=== PATIENT | male | born 1950 | race Caucasian/White ===

== ENCOUNTER 2018-04-07 18:56 | Inpatient (IN) ==
[2018-04-07] MEDS ORDERED: Aluminum/Magnesium/Simethacone Susp 30 ML UDC PO PRN (20:17)
[2018-04-08] MEDS: Finasteride 5 MG Tablet PO SCH (08:56)
[2018-04-08] MEDS: Folic Acid 1 MG Tablet PO SCH (08:56)
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
[2018-04-08] MEDS: Lisinopril 5 MG Tablet PO SCH (16:10)
[2018-04-08] MEDS: Venlafaxine XR 75 MG Capsule PO SCH (16:10)
--- NOTE | 2018-04-08 16:38 | P.CON ---
History of Present Illness Service: [facility] Consult date: 04/08/18 Requesting Physician: Luis Armando Calabrese Reason for Consult: Medical Management s/p overdose and intubation/extubation Primary Care Provider: UNKNOWN Chief Complaint: depression, suicidal, overdose History of Present Illness: 67-year-old male with history of HTN, BPH, COPD, admitted to inpatient psychiatry after inpatient hospitalization for overdose and attempted suicide. The patient was admitted to critical care, status post intubation/extubation during previous hospitalization. Hospitalist consulted for continued medical management after overdose and acute respiratory failure. The patient is seen ambulating the hallway with his walker. He denies any specific medical complaints including no fever/chills, headache, lightheadedness , chest pain, shortness of breath, or abdominal complaints. He states he has a chronic cough from his COPD; denies any recent worsening or purulent sputum. Discussed with RN, no acute concerns. Review of Systems All other systems reviewed negative except as stated in HPI [facility] - History History Provided By: Patient, Medical Record - Medical History Medical History: Medical History (Last Updated 04/08/18 @ 16:17 by Yelena Verdin) PTSD (post-traumatic stress disorder) Anxiety COPD (chronic obstructive pulmonary disease) Hypertension - Surgical History Surgical History: Surgical History (Last Updated 04/08/18 @ 17:28 by Yelena Verdin) S/P skin cancer resection - Family History Family History: Family History (Last Updated 04/08/18 @ 17:28 by Yelena Verdin) Mother Heart disease - Social History I have reviewed the patient's Social History: Yes - Tobacco History Second Hand Smoke Exposure: Yes Tobacco Use In Past 30 Days: No Smoking Status: Current every day smoker Tobacco Type: Cigarettes, E-Cigarettes - Alcohol History How Often Do You Have a Drink Containing Alcohol: Never - Substance Use History Substance History: No History of Abuse - Travel History Recent Travel in the [place] Within the Last 8 Weeks: No Recent Travel Out of the Country Within the Last 8 Weeks: No Medications and Allergies Active Medications: Active Medications Al Hydrox/Mg Hydrox/Simethicone (Mag-Al Plus Susp Liq) 30 ml PO Q6H PRN PRN Reason: DYSPEPSIA Al Hydroxide/Mg Hydroxide (Milk Of Magnesia Liq) 30 ml PO Q12H PRN PRN Reason: Mild Constipation Albuterol (Ventolin Hfa Inh) 2 puff INH Q6H PRN PRN Reason: Dyspnea Albuterol (Albuterol Neb (Prn)) 0.63 mg INH Q4HR NEB PRN PRN Reason: Dyspnea Aspirin (Aspirin Chew) 81 mg PO DAILY [facility] Last Admin: 04/08/18 08:56 Dose: 81 mg Buspirone HCl (Buspar) 5 mg PO TID [facility] Finasteride (Proscar) 5 mg PO DAILY [facility] Last Admin: 04/08/18 08:56 Dose: 5 mg Folic Acid (Folic Acid) 1 mg PO DAILY [facility] Last Admin: 04/08/18 08:56 Dose: 1 mg Lactulose (Lactulose Liq) 30 ml PO DAILY PRN PRN Reason: SEVERE CONSITIPATION Lisinopril (Prinivil) 5 mg PO DAILY [facility] Prazosin HCl (Minipress) 6 mg PO DAILY [facility] Sennosides (Senokot) 17.2 mg PO Q12H PRN PRN Reason: Moderate Constipation Venlafaxine HCl (Effexor Xr) 150 mg PO DAILY [facility] Vitamin D (Vitamin D3) 400 unit PO BID [facility] Allergies Allergy/AdvReac Type Severity Reaction Status Date / Time cefprozil [From Cefzil] Allergy Severe Rash/Swelling Verified 04/03/18 17:37 of face fluoxetine Allergy Intermediate Nausea/Joint Verified 04/03/18 17:39 and Chest pain bacitracin Allergy Mild Muscle Pain Verified 04/03/18 17:39 bupropion Allergy Mild Hives/Aggre Verified 04/03/18 17:39 ssiveness polymyxin B Allergy Mild Unknown Verified 04/03/18 17:37 gemfibrozil Allergy Unknown unknown Verified 04/03/18 17:37 influenza virus vaccine, Allergy Unknown unknown Verified 04/03/18 17:37 specific lamotrigine Allergy Unknown unknown Verified 04/03/18 17:37 paroxetine [From Paxil] Allergy Unknown unknown Verified 04/03/18 17:37 simvastatin [From Zocor] Allergy Unknown unknown Verified 04/03/18 17:37 atorvastatin [From Lipitor] AdvReac Severe Muscle Verified 04/03/18 17:37 Pain/Weakness topiramate AdvReac Mild Tingling Verified 04/03/18 17:37 metronidazole [From Flagyl] AdvReac Unknown Nausea Verified 04/03/18 17:37 tamsulosin AdvReac Unknown Mood Verified 04/03/18 17:37 changes Home Medications Medication Instructions Recorded Confirmed Type alprazolam 1 mg PO QID PRN 03/31/18 03/31/18 History prazosin 6 mg PO DAILY 03/31/18 03/31/18 History Super Beta Prostate 100 mg PO BID 04/03/18 04/03/18 History albuterol sulfate 0.63 mg INHALATION Q4-6H PRN 04/03/18 04/03/18 History albuterol sulfate 2 puff INHALATION Q6H PRN 04/03/18 04/03/18 History aspirin 81 mg PO DAILY 04/03/18 04/03/18 History cholecalciferol (vitamin D3) 400 unit PO BID 04/03/18 04/03/18 History finasteride 5 mg PO DAILY 04/03/18 04/03/18 History folic acid 1 mg PO DAILY 04/03/18 04/03/18 History krill oil 500 mg PO BID 04/03/18 04/03/18 History lisinopril 5 mg PO DAILY 04/03/18 04/03/18 History mirtazapine 45 mg PO HS 04/03/18 04/03/18 History multivitamin 1 tab PO DAILY 04/03/18 04/03/18 History bq-[id number] #[id number] 100 mg PO DAILY 04/03/18 04/03/18 History [Urinozinc Prostate Formula] polyethylene glycol 3350 17 g PO DAILY 04/03/18 04/03/18 History venlafaxine 75 mg PO BID 04/03/18 04/03/18 History Physical Exam Vital signs: Vital Signs 04/07/18 21:59 04/08/18 05:30 Temperature 98.1 F 97.7 F Pulse Rate 66 66 Respiratory Rate 18 Blood Pressure 127/78 132/79 Pulse Oximetry 93 L 93 L Intake & Output 04/07/18 04/08/18 04/08/18 18:59 06:59 18:59 Intake Total 480 / 480 Balance 480 / 480 Weight 74.6 kg Intake: Oral 480 / 480 Other: # Voids 3 Weight On Admission 74.6 kg Narrative: GENERAL: Well-nourished, well-developed male patient in NAD. Ambulating with a walker. SKIN: Warm and dry. No rash. HEENT: Normocephalic. Atraumatic. Pupils equal and round. Mucous membranes pink and moist. NECK: Supple. Trachea midline. CARDIOVASCULAR: Regular rate and rhythm. No murmur appreciated. RESPIRATORY: No accessory muscle use. Clear to auscultation. Breath sounds equal bilaterally. GASTROINTESTINAL: Abdomen soft, non-tender, nondistended. Normoactive bowel sounds x4. MUSCULOSKELETAL: No obvious deformities. Extremities without clubbing, cyanosis , or edema. NEUROLOGICAL: Awake and alert. No obvious cranial nerve deficits. Motor grossly within normal limits. Moving all extremities spontaneously. Normal speech. Assessment and Plan - Plan 67-year-old male with history of HTN, BPH, COPD, admitted to inpatient psychiatry after inpatient hospitalization for overdose and attempted suicide. The patient was admitted to critical care, status post intubation/extubation during previous hospitalization. Hospitalist consulted for continued medical management after overdose and acute respiratory failure. Overdose/suicidal ideations: Acute, status post intubation/extubation on previous admission. Previous UDS positive for benzos only. -Continue management per psychiatry Hypertension: Chronic -Continue patient's lisinopril 5 mg daily -Monitor BP, adjust antihypertensives as needed BPH: Chronic -Continue patient's Proscar and prazosin COPD: Chronic, does not appear to be an exacerbation -Continue Ventolin inhaler and albuterol nebs as needed Deconditioning: secondary to recent ICU admission -consult PT Vitamin D deficiency: Chronic -Continue patient's cholecalciferol DVT prophylaxis: Patient is ambulatory
--- NOTE | 2018-04-09 08:54 | P.PNPSY ---
Subjective Remarks: Patient seen for follow-up, chart reviewed. Discussion with nursing staff reported that patient slept well last night, continues to be isolative, refused to sign voluntary yesterday. Patient was found sitting in hospital bed noted B , cooperative. Patient stays fairly, his mood continues to be depressed but states "not as much". He states that he continues to have poor appetite, has not attended any groups, denying any suicidal ideation today stated last time was yesterday but noted to hesitate when answering this question. Patient noted to have some psychomotor retardation during interview. He reports having met with his yesterday but was unable to elaborate on specifics. Patient mentioning tolerating medication well without have some nausea yesterday. Review of Systems All other systems reviewed negative except as stated in HPI Mental Status Examination Appearance: Appropriate Consciousness: Alert Orientation: Person, Place, Date/Time Motor Activity: Abnormal gait (Uses walker) Speech: Unremarkable Language: Adequate Fund of Knowledge: Inadequate Attention and Concentration: Easily distracted Memory: Impaired (Surrounding events of suicide attempt) Mood: Sad Affect: Sad Thought Process & Associations: Intact Thought Content: Appropriate Hallucination Type: None Delusion Type: None Suicidal Ideation: Yes (Denies today but is unreliable to contract for safety at this time.) Suicidal Plan: No Suicidal Intention: No Homicidal Ideation: No Homicidal Plan: No Homicidal Intention: No Insight: Fair Judgment: Poor Assessment and Plan - Assessment (1) Major depressive disorder Code(s): F32.9 - Major depressive disorder, single episode, unspecified Status : Acute - Plan Plan: Patient continues to be noted to have dysphoric affect, psychomotor retardation , continues to have some cognitive deficit likely secondary to depression as patient has difficulty with his thought organization. We will continue current treatment. Continue to monitor mood and behavior. We will request second opinion this patient refused to sign voluntary and petition for involuntary hospitalization started. Discharge planning in progress. Justification for Continued Inpatient Stay: At risk of further decompensation at lower level care. (1) Major depressive disorder Qualifiers: Major depression recurrence: recurrent Active/Remission status: currently active Major depression episode severity: severe Psychotic features: without psychotic features Qualified Code(s): F33.2 - Major depressive disorder, recurrent severe without psychotic features
[2018-04-09] MEDS: Folic Acid 1 MG Tablet PO SCH (09:23)
[2018-04-09] MEDS: Venlafaxine XR 75 MG Capsule PO SCH (09:23)
[2018-04-09] MEDS: Lisinopril 5 MG Tablet PO SCH (09:23)
[2018-04-09] MEDS: Finasteride 5 MG Tablet PO SCH (09:24)
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
[2018-04-09] MEDS: Acetaminophen 500 MG Tablet PO PRN ×2 (14:20→21:11)
--- NOTE | 2018-04-09 14:30 | P.PN ---
Subjective Interval history: Follow-up for HTN, COPD, deconditioning, status post overdose. Patient is seen sitting on the side of his bed. He states he is annoyed with another patient and his unit he keeps bothering him. He denies any medical complaints including no fever/chills, chest pain, shortness of breath, or abdominal complaints. He states he is eating okay, had 2 servings of applesauce for breakfast. Physical Exam Vital signs: Vital Signs 04/08/18 17:22 04/09/18 05:20 Temperature 98.4 F 97.6 F Pulse Rate 78 82 Respiratory Rate 18 20 Blood Pressure 159/119 H 145/84 H Pulse Oximetry 93 L 94 L Intake & Output 04/08/18 04/09/18 04/09/18 18:59 06:59 18:59 Intake Total 480 / 480 Balance 480 / 480 Intake: Oral 480 / 480 Other: # Voids 1 Narrative: GENERAL: Well-nourished, well-developed male patient in NAD. Ambulating with a walker. SKIN: Warm and dry. No rash. HEENT: Normocephalic. Atraumatic. Pupils equal and round. Mucous membranes pink and moist. CARDIOVASCULAR: Regular rate and rhythm. No murmur appreciated. RESPIRATORY: No accessory muscle use. Clear to auscultation. Breath sounds equal bilaterally. GASTROINTESTINAL: Abdomen soft, non-tender, nondistended. Normoactive bowel sounds x4. MUSCULOSKELETAL: No obvious deformities. Extremities without clubbing, cyanosis , or edema. NEUROLOGICAL: Awake and alert. No obvious cranial nerve deficits. Motor grossly within normal limits. Moving all extremities spontaneously. Normal speech. Assessment and Plan - Plan 67-year-old male with history of HTN, BPH, COPD, admitted to inpatient psychiatry after inpatient hospitalization for overdose and attempted suicide. The patient was admitted to critical care, status post intubation/extubation during previous hospitalization. Hospitalist consulted for continued medical management after overdose and acute respiratory failure. Overdose/suicidal ideations: Acute, status post intubation/extubation on previous admission. Previous UDS positive for benzos only. -Continue management per psychiatry Hypertension: Chronic -Continue patient's lisinopril 5 mg daily -Monitor BP, adjust antihypertensives as needed BPH: Chronic -Continue patient's Proscar and prazosin COPD: Chronic, does not appear to be an exacerbation -Continue Ventolin inhaler and albuterol nebs as needed Deconditioning: secondary to recent ICU admission -consult PT, recommends home health care PT Vitamin D deficiency: Chronic -Continue patient's cholecalciferol DVT prophylaxis: Patient is ambulatory Discharge Planning: The patient is medically stable at this time. Hospitalist team will sign off. Please reconsult as needed if any new issues arise. Thank you very much for this consultation.
--- NOTE | 2018-04-09 17:08 | P.DCO ---
- Diagnosis (1) Physical deconditioning Status: Acute (2) Unsteady gait Status: Acute (3) Hypertension Status: Acute (4) BPH (benign prostatic hyperplasia) Status: Acute (5) Depression Status: Acute - Physical Therapy Order: Evaluate and treat, Improve ambulation, Strength and gait training - Case Management Consult Case Management Consult-Home Health: Yes - Certification I have seen patient Damaso Keita on 04/09/18. My clinical findings support the need for the requested home health care services because: Limited mobility due to disease progression, Deconditioned with increased weakness, Limited ability to care for self I certify that my clinical findings support that this patient is homebound because: Unsteady gait/balance, Unsafe to leave home unassisted, Unable to use public transportation (5) Depression Qualifiers: Major depression recurrence: recurrent Major depression episode severity: severe Psychotic features: without psychotic features
--- NOTE | 2018-04-09 22:26 | CT ---
EXAM DATE: 04/09/2018 10:14 PM EST AGE/SEX: 67 years / Male INDICATIONS: Dizziness, Patient fell CLINICAL DATA: This is the patient's initial encounter. Patient reports that signs and symptoms have been present for 1 day and indicates a pain score of 8/10. MEDICAL/SURGICAL HISTORY: Chronic obstructive pulmonary disease. Hypertension. Carcinoma, skin ca ncer. None. RADIATION DOSE: 39.49 CTDI (mGy) COMPARISON: [facility] [place] [facility] [place] 03/31/2018. . TECHNIQUE: CT of the head without contrast. Using automated exposure control and adjustment of the mA and/or kV according to patient size, radiation dose was kept as low as reasonably achievable to ob tain optimal diagnostic quality images. DICOM format image data is available electronically for revi ew and comparison. FINDINGS: Cerebrum: The ventricles are normal for age. No evidence of midline shift, mass lesion, hemorrhage or acute infarction. No extraaxial fluid collections are seen. Posterior Fossa: The cerebellum and brainstem are intact. The 4th ventricle is midline. The cerebe llopontine angle is unremarkable. Extracranial: The visualized portion of the orbits is intact. Skull: The calvaria is intact. No evidence of skull fracture. CONCLUSION: 1. No acute intracranial abnormalities. . Electronically signed by: Krish Hernadez MD Board Certified Radiologist 04/09/2018 10:24 PM EST
[2018-04-10] MEDS: Lisinopril 5 MG Tablet PO SCH ×2 (09:15→10:29)
[2018-04-10] MEDS: Folic Acid 1 MG Tablet PO SCH (09:15)
[2018-04-10] MEDS: Venlafaxine XR 75 MG Capsule PO SCH (09:16)
[2018-04-10] MEDS: Finasteride 5 MG Tablet PO SCH (09:21)
--- NOTE | 2018-04-10 09:25 | P.PNPSY ---
Subjective Remarks: Patient is seen today in his room with nurse Annamaria, chart reviewed, patient compliant medication. Patient alert and oriented calm cooperative and pleasant with us. States that he feels a little lightheaded at times but overall denying suicidality or homicidality voices or visions. Says he has had good conversations with his family and is feeling much better for now continue treatment Review of Systems All other systems reviewed negative except as stated in HPI Mental Status Examination Appearance: Appropriate Consciousness: Alert Orientation: Person, Place, Date/Time Motor Activity: Abnormal gait (Uses walker) Speech: Unremarkable Language: Adequate Fund of Knowledge: Inadequate Attention and Concentration: Easily distracted (Improved) Memory: Impaired (Surrounding events of suicide attempt) Mood: Sad Affect: Other (Good range and intensity) Thought Process & Associations: Intact Thought Content: Appropriate Hallucination Type: None Delusion Type: None Suicidal Ideation: Yes (Denies today but is unreliable to contract for safety at this time.) Suicidal Plan: No Suicidal Intention: No Homicidal Ideation: No Homicidal Plan: No Homicidal Intention: No Insight: Fair Judgment: Poor Assessment and Plan - Assessment (1) Major depressive disorder Code(s): F32.9 - Major depressive disorder, single episode, unspecified Status : Acute - Plan Plan: Patient mood is improving, he is vague about suicidality today does deny voices. Is compliant with medication. For now continue treatment Justification for Continued Inpatient Stay: At this time patient would decompensate if not place an appropriate level of care Discharge Planning: Probable return home with family (1) Major depressive disorder Qualifiers: Major depression recurrence: recurrent Active/Remission status: currently active Major depression episode severity: severe Psychotic features: without psychotic features Qualified Code(s): F33.2 - Major depressive disorder, recurrent severe without psychotic features
[2018-04-10 11:11] LABS: Baso % (Auto) 0.3 % (0.0-2.0); Eos # (Auto) 0.1 th/mm3 (0.0-0.4); Eos % (Auto) 0.6 % (0.0-4.0); Hematocrit 41.2 % (39.0-51.0); Hemoglobin 14.5 gm/dL (13.0-17.0); Lymph # (Auto) 2.2 th/mm3 (1.0-4.8); Lymph % (Auto) 21.9 % (9.0-44.0); Mean Corpuscular HGB Conc 35.2 % (32.0-36.0); Mean Corpuscular Hemoglobin 30.3 pg (27.0-34.0); Mean Corpuscular Volume 86.1 fL (80.0-100.0); Mean Platelet Volume 7.7 fL (7.0-11.0); Mono # (Auto) 0.6 th/mm3 (0.0-0.9); Mono % (Auto) 6.4 % (0.0-8.0); Neut # (Auto) 7.1 th/mm3 (1.8-7.7); Neut % (Auto) 70.8 % (16.0-70.0); Platelet Count 219 th/mm3 (150-450); Red Blood Count 4.78 mil/mm3 (4.50-5.90); Red Cell Distribution Width 13.3 % (11.6-17.2); White Blood Count 10.1 th/mm3 (4.0-11.0)
--- NOTE | 2018-04-10 11:27 | P.PN ---
Subjective Interval history: Follow up for HTN, COPD, deconditioning, s/p overdose. The patient suffered a fall last night and was transferred to med-psych unit from inpatient psychiatry. The patient does not have much recollection of the event. He believes he was in his room when it happened. He states he just remembers hitting the floor. He believes he might've passed out. Blood pressure was very low at the time. The patient states he does remember feeling lightheaded last night, denies any currently. Denies every having any chest pain, palpitations, or shortness of breath. He states at home, he would skip his BP meds frequently , however since he is getting them regularly while in the hospital, he believes this is affecting him. Denies any recent vomiting or diarrhea. He is eating, but not very much. Physical Exam Vital signs: Vital Signs 04/09/18 16:48 04/09/18 22:12 04/09/18 22:15 Temperature 97.3 F L 97.8 F Pulse Rate 63 73 Respiratory Rate 18 17 Blood Pressure 123/79 86/50 L 74/44 L Pulse Oximetry 95 90 L 88 L 04/09/18 22:34 04/09/18 22:36 04/09/18 23:34 Temperature 97.8 F 97.3 F L Pulse Rate 73 66 Respiratory Rate 16 Blood Pressure 86/50 L 87/53 L Pulse Oximetry 90 L 94 L 97 04/10/18 00:35 04/10/18 01:37 04/10/18 05:30 Temperature 97.6 F 97.6 F 97.4 F L Pulse Rate 58 L 64 80 Respiratory Rate 17 17 18 Blood Pressure 96/55 L 104/57 L 115/65 Pulse Oximetry 97 96 Intake & Output 04/09/18 04/10/18 04/10/18 18:59 06:59 18:59 Intake Total 480 / 480 340 / 340 Balance 480 / 480 340 / 340 Intake: Oral 480 / 480 240 / 240 Oral Supplement 100 / 100 Narrative: GENERAL: Well-nourished, well-developed very pleasant elderly male patient in [facility]. SKIN: Warm and dry. No rash. HEENT: Normocephalic. Atraumatic. Pupils equal and round. Mucous membranes pink and moist. CARDIOVASCULAR: Regular rate and rhythm. No murmur appreciated. RESPIRATORY: No accessory muscle use. Clear to auscultation. Breath sounds equal bilaterally. GASTROINTESTINAL: Abdomen soft, non-tender, nondistended. Normoactive bowel sounds x4. MUSCULOSKELETAL: No obvious deformities. Extremities without clubbing, cyanosis , or edema. NEUROLOGICAL: Awake and alert. No obvious cranial nerve deficits. Motor grossly within normal limits. Moving all extremities spontaneously. Normal speech. Results - Labs CBC & Chem 7: 04/10/18 10:42 04/10/18 10:42 Laboratory Results - last 24 hr 04/10/18 10:42 WBC 10.1 RBC 4.78 Hgb 14.5 Hct 41.2 MCV 86.1 MCH 30.3 MCHC 35.2 RDW 13.3 Plt Count 219 MPV 7.7 Neut % (Auto) 70.8 H Lymph % (Auto) 21.9 [place] % (Auto) 6.4 Eos % (Auto) 0.6 Baso % (Auto) 0.3 Neut # (Auto) 7.1 Lymph # (Auto) 2.2 [place] # (Auto) 0.6 Eos # (Auto) 0.1 Baso # (Auto) 0.0 WBC Differential . Differential Comment Auto diff final - Imaging Impressions Head CT 04/09/18 00:00 CONCLUSION: 1. No acute intracranial abnormalities. . Assessment and Plan - Assessment (1) Physical deconditioning Code(s): R53.81 - Other malaise Status: Acute (2) Unsteady gait Code(s): R26.81 - Unsteadiness on feet Status: Acute (3) Hypertension Code(s): I10 - Essential (primary) hypertension Status: Acute (4) BPH (benign prostatic hyperplasia) Code(s): N40.0 - Benign prostatic hyperplasia without lower urinary tract symptoms Status: Acute (5) Depression Code(s): F32.9 - Major depressive disorder, single episode, unspecified Status : Acute - Plan 67-year-old male with history of HTN, BPH, COPD, admitted to inpatient psychiatry after inpatient hospitalization for overdose and attempted suicide. The patient was admitted to critical care, status post intubation/extubation during previous hospitalization. Hospitalist consulted for continued medical management after overdose and acute respiratory failure. Overdose/suicidal ideations: Acute, status post intubation/extubation on previous admission. Previous UDS positive for benzos only. -Continue management per psychiatry Fall, Suspect Syncope: 04/10 patient had episode of fall with questionable syncope overnight, suspect secondary to hypotension, BP down to 74/44. -Head CT reviewed and unremarkable -EMR reviewed, Echo 04/01/18 unremarkable with EF 55-60%, EEG unremarkable -Orthostatics mildly positive, SBP drops from 122 sitting to 109 standing, apply kelli hose, counseled on slow transitions -Check CBC/BMP -patient received prazosin last night, possible etiology, will hold for now -hold lisinopril Hypertension: Chronic -holding patient's lisinopril as above for hypotension and syncope -Monitor BP, adjust antihypertensives as needed BPH: Chronic -Continue patient's Proscar, however holding prazosin for now due to hypotension/syncope COPD: Chronic, does not appear to be an exacerbation -Continue Ventolin inhaler and albuterol nebs as needed Deconditioning: secondary to recent ICU admission -consult PT, recommends home health care PT Vitamin D deficiency: Chronic -Continue patient's cholecalciferol DVT prophylaxis: Patient is ambulatory (5) Depression Qualifiers: Major depression recurrence: recurrent Major depression episode severity: severe Psychotic features: without psychotic features
[2018-04-10 11:33] LABS: Calcium 8.7 mg/dL (8.5-10.1); Potassium 3.9 meq/L (3.5-5.1)
[2018-04-10 22:51] VITALS: RESP 18
[2018-04-11] MEDS: Finasteride 5 MG Tablet PO SCH (08:56)
[2018-04-11] MEDS: Venlafaxine XR 75 MG Capsule PO SCH (08:56)
[2018-04-11] MEDS: Folic Acid 1 MG Tablet PO SCH (08:56)
--- NOTE | 2018-04-11 09:50 | P.PN ---
Subjective Interval history: Follow-up for fall, questionable syncope, deconditioning, status post overdose. Patient seen sitting upright on side of bed. He reports feeling much better today. He denies any lightheadedness or dizziness. Denies any other medical complaints including no fever/chills, cough, chest pain, shortness of breath, or abdominal complaints. Physical Exam Vital signs: Vital Signs 04/10/18 13:34 04/10/18 17:54 04/10/18 21:34 Temperature 97.1 F L 98.1 F Pulse Rate 63 67 57 L Respiratory Rate 16 16 18 Blood Pressure 122/70 132/87 136/78 Pulse Oximetry 97 94 L 95 04/10/18 22:52 04/10/18 22:53 04/11/18 06:10 Temperature 97.3 F L Pulse Rate 57 L 78 52 L Respiratory Rate 18 Blood Pressure 136/78 114/77 125/77 Pulse Oximetry 95 Intake & Output 04/10/18 04/11/18 04/11/18 18:59 06:59 18:59 Intake Total 960 / 960 480 / 480 Balance 960 / 960 480 / 480 Intake: Oral 960 / 960 480 / 480 Other: # Voids 2 3 Narrative: GENERAL: Well-nourished, well-developed very pleasant elderly male patient in [facility]. SKIN: Warm and dry. No rash. HEENT: Normocephalic. Atraumatic. Pupils equal and round. Mucous membranes pink and moist. CARDIOVASCULAR: Regular rate and rhythm. No murmur appreciated. RESPIRATORY: No accessory muscle use. Clear to auscultation. Breath sounds equal bilaterally. GASTROINTESTINAL: Abdomen soft, non-tender, nondistended. Normoactive bowel sounds x4. MUSCULOSKELETAL: No obvious deformities. Extremities without clubbing, cyanosis , or edema. NEUROLOGICAL: Awake and alert. No obvious cranial nerve deficits. Motor grossly within normal limits. Moving all extremities spontaneously. Normal speech. Results - Labs CBC & Chem 7: 04/10/18 10:42 04/10/18 10:42 Laboratory Results - last 24 hr 04/10/18 04/10/18 10:42 10:42 WBC 10.1 RBC 4.78 Hgb 14.5 Hct 41.2 MCV 86.1 MCH 30.3 MCHC 35.2 RDW 13.3 Plt Count 219 MPV 7.7 Neut % (Auto) 70.8 H Lymph % (Auto) 21.9 [place] % (Auto) 6.4 Eos % (Auto) 0.6 Baso % (Auto) 0.3 Neut # (Auto) 7.1 Lymph # (Auto) 2.2 [place] # (Auto) 0.6 Eos # (Auto) 0.1 Baso # (Auto) 0.0 WBC Differential . Differential Comment Auto diff final Sodium 136 Potassium 3.9 Chloride 104 Carbon Dioxide 23.0 Anion Gap 9 BUN 33 H Creatinine 1.20 Estimated GFR 61 L Random Glucose 89 Calcium 8.7 Assessment and Plan - Assessment (1) Physical deconditioning Code(s): R53.81 - Other malaise Status: Acute (2) Unsteady gait Code(s): R26.81 - Unsteadiness on feet Status: Acute (3) Hypertension Code(s): I10 - Essential (primary) hypertension Status: Acute (4) BPH (benign prostatic hyperplasia) Code(s): N40.0 - Benign prostatic hyperplasia without lower urinary tract symptoms Status: Acute (5) Depression Code(s): F32.9 - Major depressive disorder, single episode, unspecified Status : Acute - Plan 67-year-old male with history of HTN, BPH, COPD, admitted to inpatient psychiatry after inpatient hospitalization 03/31/ for overdose and attempted suicide. The patient was admitted to critical care, status post intubation/extubation during previous hospitalization. Hospitalist consulted for continued medical management after overdose and acute respiratory failure. Overdose/suicidal ideations: Acute, status post intubation/extubation on previous admission. Previous UDS positive for benzos only. -Continue management per psychiatry Fall, Suspected Syncope: 04/10 patient had episode of fall with questionable syncope overnight, suspect secondary to hypotension, BP down to 74/44. -Head CT reviewed and unremarkable -EMR reviewed, Echo 04/01/18 unremarkable with EF 55-60%, EEG unremarkable -Orthostatics mildly positive, SBP drops from 122 sitting to 109 standing, apply kelli hose, counseled on slow transitions-patient verbalized understanding -CBC and BMP unremarkable -patient received prazosin just prior to the episode, likely etiology, will discontinue -Continue to hold patient's lisinopril for now, consider restarting if BP > 140 Hypertension: Chronic -holding patient's lisinopril as above for hypotension and syncope -Monitor BP, adjust antihypertensives as needed BPH: Chronic -Continue patient's Proscar, however holding prazosin for now due to hypotension/syncope COPD: Chronic, does not appear to be an exacerbation -Continue Ventolin inhaler and albuterol nebs as needed Deconditioning: secondary to recent ICU admission -consult PT, recommends home health care PT Vitamin D deficiency: Chronic -Continue patient's cholecalciferol DVT prophylaxis: Patient is ambulatory (5) Depression Qualifiers: Major depression recurrence: recurrent Major depression episode severity: severe Psychotic features: without psychotic features
--- NOTE | 2018-04-11 14:08 | P.PNPSY ---
Subjective Remarks: Patient was seen and case discussed with nursing. Patient is pleasant and cooperative with exam. He is compliant with his medications. Rate and tearful during the interview. Denies suicidal or homicidal ideation intent or plan. Review of Systems All other systems reviewed negative except as stated in HPI Mental Status Examination Appearance: Appropriate Consciousness: Alert Orientation: Person, Place, Date/Time Motor Activity: Abnormal gait (Uses walker) Speech: Unremarkable Language: Adequate Fund of Knowledge: Inadequate Attention and Concentration: Easily distracted (Improved) Memory: Impaired (Surrounding events of suicide attempt) Mood: Appropriate, Sad Affect: Appropriate Thought Process & Associations: Intact Thought Content: Appropriate Hallucination Type: None Delusion Type: None Suicidal Ideation: Yes (Denies today but is unreliable to contract for safety at this time.) Suicidal Plan: No Suicidal Intention: No Homicidal Ideation: No Homicidal Plan: No Homicidal Intention: No Insight: Fair Judgment: Poor Assessment and Plan - Assessment (1) Major depressive disorder Code(s): F32.9 - Major depressive disorder, single episode, unspecified Status : Acute - Plan Plan: Continue current treatment plan Justification for Continued Inpatient Stay: Patient would decompensate in a less restrictive setting (1) Major depressive disorder Qualifiers: Major depression recurrence: recurrent Active/Remission status: currently active Major depression episode severity: severe Psychotic features: without psychotic features Qualified Code(s): F33.2 - Major depressive disorder, recurrent severe without psychotic features
--- NOTE | 2018-04-12 08:20 | P.PN ---
Subjective Interval history: Follow-up visit for questionable syncopal episode, deconditioning. Spoke with nurse reports uneventful night, patient has been ambulating in the cr without any issues. He is seen and examined resting in bed in no acute distress. Denies any dizziness, lightheadedness, shortness of breath, cough, chest pain, nausea, vomiting or abdominal pain. He does report 4 episodes of liquid stool yesterday. No further complaints reported. He is asking when he will be able to go home. Physical Exam Vital signs: Vital Signs 04/11/18 21:46 04/12/18 05:46 Temperature 98.1 F 97.3 F L Pulse Rate 85 55 L Respiratory Rate 18 18 Blood Pressure 146/83 H 138/78 Pulse Oximetry 94 L 96 Intake & Output 04/11/18 04/12/18 04/12/18 18:59 06:59 18:59 Intake Total 960 / 960 1520 / 1520 Balance 960 / 960 1520 / 1520 Weight 74.3 kg Intake: Oral 960 / 960 1520 / 1520 Other: # Voids 3 3 Results - Labs CBC & Chem 7: 04/10/18 10:42 04/10/18 10:42 Assessment and Plan - Assessment (1) Physical deconditioning Code(s): R53.81 - Other malaise Status: Acute (2) Unsteady gait Code(s): R26.81 - Unsteadiness on feet Status: Acute (3) Hypertension Code(s): I10 - Essential (primary) hypertension Status: Acute (4) BPH (benign prostatic hyperplasia) Code(s): N40.0 - Benign prostatic hyperplasia without lower urinary tract symptoms Status: Acute (5) Depression Code(s): F32.9 - Major depressive disorder, single episode, unspecified Status : Acute - Plan 67-year-old male with history of HTN, BPH, COPD, admitted to inpatient psychiatry after inpatient hospitalization for overdose and attempted suicide. The patient was admitted to critical care, status post intubation/extubation during previous hospitalization. Hospitalist consulted for continued medical management after overdose and acute respiratory failure. Overdose/suicidal ideations: Acute, status post intubation/extubation on previous admission. Previous UDS positive for benzos only. -Continue management per psychiatry Fall, Suspected Syncope: 04/10 patient had episode of fall with questionable syncope overnight, suspect secondary to hypotension, BP down to 74/44. -Head CT reviewed and unremarkable -EMR reviewed, Echo 04/01/18 unremarkable with EF 55-60%, EEG unremarkable -Orthostatics mildly positive, SBP drops from 122 sitting to 109 standing, apply kelli hose, counseled on slow transitions-patient verbalized understanding -CBC and BMP unremarkable -patient received prazosin just prior to the episode, likely etiology, will discontinue -Continue to hold patient's lisinopril for now, BP stable since 04/10 Hypertension: Chronic -holding patient's lisinopril as above for hypotension and syncope -BP has been stable BPH: Chronic -Continue patient's Proscar,hold prazosin due to hypotension/syncope episode. COPD: Chronic, does not appear to be an exacerbation -Continue Ventolin inhaler and albuterol nebs as needed Deconditioning: secondary to recent ICU admission -consult PT, recommends home health care PT Vitamin D deficiency: Chronic -Continue patient's cholecalciferol Diarrhea, acute -No stool softeners administered recently. - C. difficile negative, PRN Imodium. DVT prophylaxis: Patient is ambulatory Patient medically stable, can be transferred to regular psych unit. H will sign off, please reconsult if needed. Discussed Condition With: Patient and RN (5) Depression Qualifiers: Major depression recurrence: recurrent Major depression episode severity: severe Psychotic features: without psychotic features
[2018-04-12] MEDS: Venlafaxine XR 75 MG Capsule PO SCH (08:53)
[2018-04-12] MEDS: Finasteride 5 MG Tablet PO SCH (08:53)
[2018-04-12] MEDS: Folic Acid 1 MG Tablet PO SCH (08:53)
--- NOTE | 2018-04-12 13:15 | P.PNPSY ---
Subjective Remarks: Patient seen for follow-up, chart reviewed. Discussion with nursing staff reported that patient no behavior disturbances, pleasant, denying any suicide ideation. Patient was found and ablated on unit noted to be calm and cooperative. Patient stated weekend went okay" stating he had spoken to his over the weekend which went well. He reports feeling "good" attending groups, he denies feeling depressed denying suicide ideations. Patient states 3 reasons to live are his family his and his pet. Collateral admission the patient was reported that the patient is close to being 100% back to his baseline has no safety concerns of patient being discharged home. Patient recently was reporting loose stools which testing for C. difficile is underway and pending medical clearance prior to discharge. Review of Systems All other systems reviewed negative except as stated in HPI Mental Status Examination Appearance: Appropriate Consciousness: Alert Orientation: Person, Place, Date/Time Motor Activity: Abnormal gait (Uses walker) Speech: Unremarkable Language: Adequate Fund of Knowledge: Inadequate Attention and Concentration: Adequate Memory: Impaired (Surrounding events of suicide attempt) Mood: Appropriate Affect: Appropriate Thought Process & Associations: Intact Thought Content: Appropriate Hallucination Type: None Delusion Type: None Suicidal Ideation: No Suicidal Plan: No Suicidal Intention: No Homicidal Ideation: No Homicidal Plan: No Homicidal Intention: No Insight: Fair Judgment: Impulsive Assessment and Plan - Assessment (1) Major depressive disorder Code(s): F32.9 - Major depressive disorder, single episode, unspecified Status : Acute - Plan Plan: Patient this time noted with improved mood, denying any depressed mood, denying suicide ideations. Patient's did not voice any safety concern of patient being discharged. Patient pending C. difficile results prior to discharge as patient required medical clearance. We will continue current treatment. Continue to monitor with behavior. Once patient is medically cleared patient likely for discharge home. Discharge planning in progress. Justification for Continued Inpatient Stay: At risk of further decompensation at lower level care. (1) Major depressive disorder Qualifiers: Major depression recurrence: recurrent Active/Remission status: currently active Major depression episode severity: severe Psychotic features: without psychotic features Qualified Code(s): F33.2 - Major depressive disorder, recurrent severe without psychotic features
--- NOTE | 2018-04-12 14:22 | P.TTN ---
- Patient Problems Problems: 1. Discharge planning 2. Medication compliance 3. Knowledge deficit 4. Lack of coping skills - Progress Toward Goals Provider Present: Dr. Suyapa Calabrese Provider Input: 04/12/18: Pt continues to be closely observed by staff, no recent medication changes, MD to review pt status from over the weekend. Pt d/c plan is to return with spouse when pt is stable. Group Spec/RT/OT/CHILD Present: Nirmal Sidhu OT Group Spec/RT/OT/CHILD Input: 04/12/18: Pt attends groups when he is invited, he does not initiate these requests. - Discharge Plan 04/12/18: Pt d/c plan is to return with spouse when pt is stable. - Documentation Teaching Recipient: Patient
[2018-04-12] MEDS ORDERED: Loperamide 2 MG Capsule PO PRN (16:10)
[2018-04-13 06:12] VITALS: BP 133/80; PULSE 65; TEMP 97.6; O2SAT 95
[2018-04-13] MEDS: Folic Acid 1 MG Tablet PO SCH (08:12)
[2018-04-13] MEDS: Finasteride 5 MG Tablet PO SCH (08:12)
[2018-04-13] MEDS: Venlafaxine XR 75 MG Capsule PO SCH (08:12)
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
== END 2018-04-12 16:00 | disposition home or self-care (01) | DRG 881 ==
LOC: H260 18:56 → H4EA 04-09 22:25
PROVIDERS: ADMIT Student in an Organized Health Care Education/Training Program; ATTEND Student in an Organized Health Care Education/Training Program